=== PATIENT | male | born 1995 | race Caucasian/White ===

== ENCOUNTER 2018-06-17 23:40 | Emergency (ER) | payer BC ==
[2018-06-18] MEDS ORDERED: SODIUM CHLORIDE 0.9% 500 ML 500 ML IV STA (00:16)
--- NOTE | 2018-06-18 00:30 | XR ---
EXAMINATION TYPE: XR chest 2V DATE OF EXAM: 06/18/2018 COMPARISON: NONE HISTORY: Chest pain TECHNIQUE: Frontal and lateral views of the chest are obtained. FINDINGS: Heart and mediastinum are normal. Lungs are clear. Diaphragm is normal. There is no eviden ce of pleural effusion. Bony thorax is intact. There are chest leads. IMPRESSION: Normal chest
[2018-06-18 01:06] LABS: Basophils % (A) 0 %; Eosinophils # (A) 0.2 k/uL (0-0.7); Eosinophils % (A) 3 %; HCT 44.8 % (39.0-53.0); HGB 14.7 gm/dL (13.0-17.5); Lymphocytes # (A) 1.9 k/uL (1.0-4.8); Lymphocytes % (A) 31 %; MCH 28.3 pg (25.0-35.0); MCHC 32.7 g/dL (31.0-37.0); MCV 86.4 fL (80.0-100.0); Mean Platelet Volume 6.8; Monocytes # (A) 0.3 k/uL (0-1.0); Monocytes % (A) 5 %; Neutrophils # (A) 3.7 k/uL (1.3-7.7); Neutrophils % (A) 60 %; Platelet Count 203 k/uL (150-450); RBC 5.19 m/uL (4.30-5.90); RDW 12.7 % (11.5-15.5); WBC 6.2 k/uL (3.8-10.6)
[2018-06-18 01:15] LABS: INR 1.1 (<1.2); Partial Thromboplastin Time 26.7 sec (22.0-30.0); Prothrombin Time 11.3 sec (9.0-12.0)
[2018-06-18 01:17] LABS: ALT 36 U/L (21-72); AST 24 U/L (17-59); Albumin 4.1 g/dL (3.5-5.0); Alkaline Phosphatase 65 U/L (38-126); Amylase 45 U/L (30-110); Anion Gap 8 mmol/L; Blood Urea Nitrogen 15 mg/dL (9-20); Calcium 9.3 mg/dL (8.4-10.2); Carbon Dioxide 28 mmol/L (22-30); Chloride 106 mmol/L (98-107); Glucose 97 mg/dL (74-99); Lipase 69 U/L (23-300); Magnesium 2.2 mg/dL (1.6-2.3); Potassium 4.2 mmol/L (3.5-5.1); Sodium 142 mmol/L (137-145); Total Bilirubin 0.5 mg/dL (0.2-1.3); Total Protein 6.6 g/dL (6.3-8.2)
[2018-06-18 01:26] LABS: Creatine Kinase 97 U/L (55-170)
[2018-06-18] MEDS ORDERED: KETOROLAC 30 MG/ML 1 ML VIAL IVP STA (01:31)
--- NOTE | 2018-06-18 01:33 | ED ---
Chest Pain HPI - General Chief Complaint: Chest Pain Stated Complaint: Chest Pain Time Seen by Provider: 06/17/18 23:50 Source: family, RN notes reviewed, old records reviewed Mode of arrival: ambulatory Limitations: no limitations - History of Present Illness Initial Comments: Patient is a 23-year-old male, presents emergency department today with chief complaint chest pain intermittently for the past 2 days. He reports he had some episodes today while he was at work. He denies any nausea or vomiting. He reports some associated shortness of breath. He has no history of lung disease. He occasionally smokes marijuana. No cigarettes. He reports that over the past few days is also been having some generalized abdominal pain. He was told that he is constipated by medics breath. He's been taking MiraLAX. He did have bowel movement. Urination normal. He denies any nausea or vomiting. - Related Data Previous Rx's Medication Instructions Recorded Ibuprofen 400 mg PO TID #20 tablet 06/18/18 methylPREDNISolone Dose Pack 4 mg PO DIRECTED #21 package 06/18/18 [Medrol Dose Pack] Allergies Allergy/AdvReac Type Severity Reaction Status Date / Time Penicillins Allergy Unknown Verified 05/28/18 00:20 Childhood Sulfa (Sulfonamide Allergy Unknown Verified 05/28/18 00:20 Antibiotics) Childhood Review of Systems ROS Statement: Those systems with pertinent positive or pertinent negative responses have been documented in the HPI. ROS Other: All systems not noted in ROS Statement are negative. EKG Findings - EKG Comments: EKG Findings:: EKG performed at 2357 shows normal sinus rhythm with sinus arrhythmia. Normal EKG noted. Patient's ventricular rate of 73 bpm. TX interval is 178 ms. QRS duration is 104 ms. QT QTc is 366/43 ms. Past Medical History Past Medical History: No Reported History History of Any Multi-Drug Resistant Organisms: None Reported Past Surgical History: No Surgical Hx Reported Past Psychological History: No Psychological Hx Reported Smoking Status: Never smoker Past Alcohol Use History: Occasional Past Drug Use History: Marijuana General Exam - General Exam Comments Initial Comments: 23-year-old male. Somewhat anxious appearing. Patient appears in no acute distress. Limitations: no limitations General appearance: alert, in no apparent distress Head exam: Present: atraumatic, normocephalic, normal inspection Eye exam: Present: normal appearance, PERRL, EOMI. Absent: scleral icterus, conjunctival injection, periorbital swelling ENT exam: Present: normal exam, mucous membranes moist Neck exam: Present: normal inspection Respiratory exam: Present: normal lung sounds bilaterally. Absent: respiratory distress, wheezes, rales, rhonchi, stridor Cardiovascular Exam: Present: regular rate, normal rhythm, normal heart sounds. Absent: systolic murmur, diastolic murmur, rubs, gallop, clicks GI/Abdominal exam: Present: soft, normal bowel sounds. Absent: distended, tenderness, guarding, rebound, rigid Extremities exam: Present: normal inspection, full ROM, normal capillary refill. Absent: tenderness, pedal edema, joint swelling, calf tenderness Back exam: Present: normal inspection Neurological exam: Present: alert Psychiatric exam: Present: normal affect, normal mood Skin exam: Present: warm, dry, intact, normal color. Absent: rash Course Vital Signs 06/17/18 06/17/18 06/18/18 23:42 23:46 00:46 Temperature 98.1 F Pulse Rate 64 68 73 Respiratory 16 20 20 Rate Blood Pressure 122/80 132/84 121/80 O2 Sat by Pulse 100 99 99 Oximetry 06/18/18 01:44 Temperature Pulse Rate 67 Respiratory 20 Rate Blood Pressure 112/83 O2 Sat by Pulse 99 Oximetry Chest Pain MDM - MDM 23-year-old male presents to brace her arm today with chief complaint of chest pain or belly for the past 2 days. He reports it was worse work today. He complains of left sided nature. Radiating. Patient EKG was reviewed and negative for any acute process. Lab work including troponin were reviewed and negative. Liver enzymes are normal. Chest x-ray was reviewed and normal. Discussed at this time patient's symptoms could likely be related to costochondritis. He can follow-up with primary care physician. Cardiac etiology based on the oblique that time patient's symptoms are occurring is ruled out due to negative troponin and normal EKG. Disposition Clinical Impression: Costochondritis Disposition: HOME SELF-CARE Condition: Good Instructions: Costochondritis (ED) Additional Instructions: Patient advised to follow-up with primary care provider. Return to emergency department if any alarming signs or symptoms occur. Prescriptions: Ibuprofen 400 mg PO TID #20 tablet methylPREDNISolone Dose Pack [Medrol Dose Pack] 4 mg PO DIRECTED #21 package Is patient prescribed a controlled substance at d/c from ED?: No Referrals: None,Stated [Primary Care Provider] - 1-2 days Twila Lynn MD [STAFF PHYSICIAN] - 1-2 days Barber Caicedo MD [STAFF PHYSICIAN] - 1-2 days Time of Disposition: 02:19
[2018-06-18 01:36] LABS: Creatine Kinase MB 0.9 ng/mL (0.0-2.4)
[2018-06-18 01:39] LABS: Troponin I <0.012 ng/mL (0.000-0.034)
[2018-06-18 02:45] VITALS: BP 121/81; PULSE 66; RESP 18; TEMP 98.2
== END 2018-06-18 02:35 | disposition home or self-care (01) ==
LOC: EC 23:40
DX: M94.0 Chondrocostal junction syndrome [Tietze] (principal); R06.02 Shortness of breath; Z88.0 Allergy status to penicillin; Z88.2 Allergy status to sulfonamides; Z53.8 Procedure and treatment not carried out for other reasons
CPT/HCPCS: 36415; 71046; 80053; 82150; 82550; 82553; 83690; 83735; 84484; 85025; 85610; 85730; 93005; 96360; 99285

== ENCOUNTER 2018-08-06 08:28 | Day surgery (SDC) | payer BC ==
[2018-08-05 09:07] VITALS: BMI 21.8
[~2018-08-06 08:28] MED LIST: LACTATED RINGERS 1,000 ML IV SCH
[2018-08-06 08:54] VITALS: TEMP 97.4
[2018-08-06] MEDS ORDERED: PROPOFOL 10 MG/ML 20 ML VIAL IV ONE (09:49)
--- NOTE | 2018-08-06 09:54 | P.GSHP ---
History of Present Illness H&P Date: 08/06/18 Chief Complaint: Rectal bleeding This a 23-year-old male who presents today for colonoscopy. He's had issues with rectal bleeding. Patient describes a small amount of blood on his stool when he has a bowel movement. Past Medical History Past Medical History: No Reported History Additional Past Medical History / Comment(s): CHANGE IN BOWEL HABITS. OCCASSIONAL BLOOD AND MUCUS IN STOOL History of Any Multi-Drug Resistant Organisms: None Reported Past Surgical History: No Surgical Hx Reported Past Anesthesia/Blood Transfusion Reactions: No Reported Reaction Smoking Status: Never smoker - Past Family History Mother Family Medical History: No Reported History Medications and Allergies Home Medications Medication Instructions Recorded Confirmed Type No Known Home Medications 08/05/18 08/06/18 History Allergies Allergy/AdvReac Type Severity Reaction Status Date / Time Penicillins Allergy Unknown Verified 08/06/18 08:50 Childhood Sulfa (Sulfonamide Allergy Unknown Verified 08/06/18 08:50 Antibiotics) Childhood Surgical - Exam Vital Signs Temp Pulse Resp BP Pulse Ox 97.4 F L 75 16 122/66 100 08/06/18 08:51 08/06/18 08:51 08/06/18 08:51 08/06/18 08:51 08/06/18 08:51 - General well developed, well nourished, no distress - Eyes PERRL - ENT normal pinna - Neck no masses - Respiratory normal expansion - Cardiovascular Rhythm: regular - Abdomen Abdomen: soft, non tender Assessment and Plan Assessment: Rectal bleeding. We'll perform colonoscopy.
--- NOTE | 2018-08-06 10:08 | P.OP ---
Date of Procedure: 08/06/18 Preoperative Diagnosis: Rectal bleeding Postoperative Diagnosis: Minimal internal hemorrhoids Procedure(s) Performed: Colonoscopy Anesthesia: MAC Surgeon: Srinivasa Stevenson Pathology: none sent Condition: stable Disposition: PACU Description of Procedure: The patient's placed on the endoscopy table in the lateral position. He received IV sedation. Digital rectal exam was performed which revealed minimal internal hemorrhoids. The flexible colonoscope was then placed patient anus and passed throughout the entire colon. The ileocecal valve was visualized. Cecum, ascending and transverse colon appeared normal. The descending and sigmoid colon appeared normal. Scope was then brought back the rectum this was normal. Scope was withdrawn through the anus and there is minimal internal hemorrhoids. There is no sign of any active GI bleed. Minimal internal hemorrhoids. It was presumed that the patient's previous rectal bleeding is due to internal hemorrhoids however no bleeding was seen on the colonoscopy..
[2018-08-06 10:14] VITALS: RESP 18
[2018-08-06 10:28] VITALS: BP 110/65; PULSE 79
== END 2018-08-06 10:58 | disposition home or self-care (01) ==
LOC: ORWHC2ENDO 08:28
PROVIDERS: ATTEND Surgery
DX: K62.5 Hemorrhage of anus and rectum (principal); K64.8 Other hemorrhoids; Z88.0 Allergy status to penicillin; Z88.2 Allergy status to sulfonamides
CPT/HCPCS: 45378; J2704

== ENCOUNTER 2019-01-14 18:23 | Emergency (ER) | payer BC, OTHER ==
--- NOTE | 2019-01-14 20:25 | XR ---
EXAMINATION TYPE: XR hand complete RT DATE OF EXAM: 01/14/2019 COMPARISON: NONE HISTORY: Injury and pain TECHNIQUE: 3 views FINDINGS: Metacarpals appear intact. I see no fracture nor dislocation. There are no erosions. Joint spaces are normal. IMPRESSION: Negative right hand exam.
--- NOTE | 2019-01-14 20:43 | ED ---
Upper Extremity HPI - General Chief Complaint: Extremity Injury, Upper Stated Complaint: [facility]-Hand Injury Time Seen by Provider: 01/14/19 19:27 Source: patient, RN notes reviewed, old records reviewed Mode of arrival: ambulatory Limitations: no limitations - History of Present Illness Initial Comments: PAtient is a 23 year old male with right hand injury at work. Complains of smashing right 5th, fourth fingers on steel plate at work. Patient reports ROM, but with pain. Denies any other complaints. - Related Data Previous Rx's Medication Instructions Recorded Ibuprofen 600 mg PO TID #20 tablet 01/14/19 Allergies Allergy/AdvReac Type Severity Reaction Status Date / Time Penicillins Allergy Unknown Verified 01/14/19 19:02 Childhood Sulfa (Sulfonamide Allergy Unknown Verified 01/14/19 19:02 Antibiotics) Childhood Review of Systems ROS Statement: Those systems with pertinent positive or pertinent negative responses have been documented in the HPI. ROS Other: All systems not noted in ROS Statement are negative. Past Medical History Past Medical History: No Reported History Additional Past Medical History / Comment(s): CHANGE IN BOWEL HABITS. OCCASSIONAL BLOOD AND MUCUS IN STOOL History of Any Multi-Drug Resistant Organisms: None Reported Past Surgical History: No Surgical Hx Reported Past Anesthesia/Blood Transfusion Reactions: No Reported Reaction Past Psychological History: No Psychological Hx Reported Smoking Status: Never smoker Past Alcohol Use History: None Reported Past Drug Use History: Marijuana - Past Family History Mother Family Medical History: No Reported History General Exam - General Exam Comments Initial Comments: 23 year old male, no distress. Limitations: no limitations General appearance: alert, in no apparent distress Head exam: Present: atraumatic, normocephalic, normal inspection Eye exam: Present: normal appearance, PERRL, EOMI. Absent: scleral icterus, conjunctival injection, periorbital swelling ENT exam: Present: normal exam, mucous membranes moist Neck exam: Present: normal inspection. Absent: tenderness, meningismus, lymphadenopathy Respiratory exam: Present: normal lung sounds bilaterally. Absent: respiratory distress, wheezes, rales, rhonchi, stridor Extremities exam: Present: normal inspection, full ROM, normal capillary refill. Absent: tenderness, pedal edema, joint swelling, calf tenderness Right Forearm Wrist exam: Present: normal inspection, full ROM Hand Wrist exam: Present: normal inspection, full ROM, tenderness (over fifth digit and metacarpals. No deformity. Normal cap refill and sensation to light touch. ) Neuro motor exam: Present: wrist extension intact, thumb opposition intact, thumb IP flexion intact, thumb adduction intact, fingers 2-5 abduction intact Neurosensory exam: Present: 2-point discrimination Course Vital Signs 01/14/19 01/14/19 19:02 21:00 Temperature 98.2 F 98.1 F Pulse Rate 77 78 Respiratory 18 20 Rate Blood Pressure 111/72 110/68 O2 Sat by Pulse 99 99 Oximetry Medical Decision Making - Medical Decision Making 23 year old male with right hand pain after hitting it on metal plate while at work. Tenderness over 5th metacarapal. Patient has full ROM, no tendon disruption, and is neurovascularly intact. At this time patient given WILL wrap. Discussed contusion and strain of hand. Discussed return parametesr. - Radiology Data Radiology results: report reviewed Negative right hand exam. Disposition Clinical Impression: Sprain of right hand, Contusion, hand Disposition: HOME SELF-CARE Condition: Good Instructions (If sedation given, give patient instructions): Hand Sprain (ED) Additional Instructions: Patient take Motrin Tylenol for pain. Follow-up with [facility] of the dictation persist after the next few days. Return to the emergency department if any alarming signs or symptoms occur. Prescriptions: Ibuprofen 600 mg PO TID #20 tablet Is patient prescribed a controlled substance at d/c from ED?: No Referrals: Nessa Quinteros DO [Primary Care Provider] - 1-2 days Time of Disposition: 20:38
[2019-01-14 22:07] VITALS: BP 110/68; PULSE 78; RESP 20; TEMP 98.1
== END 2019-01-14 21:00 | disposition home or self-care (01) ==
LOC: EC 18:23
DX: S63.91XA Sprain of unspecified part of right wrist and hand, initial encounter (principal); Z88.0 Allergy status to penicillin; Z88.2 Allergy status to sulfonamides; W22.8XXA Striking against or struck by other objects, initial encounter; Y92.69 Other specified industrial and construction area as the place of occurrence of the external cause; Y99.0 Civilian activity done for income or pay
CPT/HCPCS: 99284

== ENCOUNTER 2019-10-26 20:25 | Emergency (ER) | payer OTHER ==
[2019-10-26 20:32] VITALS: RESP 20
--- NOTE | 2019-10-26 20:50 | ED ---
Extremity Problem HPI - General Chief complaint: Extremity Problem,Nontraumatic Stated complaint: L Leg Pain Time Seen by Provider: 10/26/19 20:34 Source: patient, RN notes reviewed Mode of arrival: ambulatory Limitations: no limitations - History of Present Illness Initial comments: This a 24-year-old male presents emergency Department chief complaint of left calf pain. Patient states that this is starting last 24 hours. Patient states initially only hurt when he ambulated but states now it hurts when something rubs against his skin. Patient states is on the lateral portion of his calf. Denies any injury. She denies any rash. Patient denies any back pain no history of back problems. Denies any bowel, bladder incontinence or retention denies any paresthesias or saddle anesthesias. Patient states that he was wearing loose pants because it was bothering initially rubbed against area. He denies any redness - Related Data Home Medications Medication Instructions Recorded Confirmed No Known Home Medications 10/26/19 10/26/19 Allergies Allergy/AdvReac Type Severity Reaction Status Date / Time Penicillins Allergy Unknown Verified 10/26/19 21:45 Childhood Sulfa (Sulfonamide Allergy Unknown Verified 10/26/19 21:45 Antibiotics) Childhood Review of Systems ROS Statement: Those systems with pertinent positive or pertinent negative responses have been documented in the HPI. ROS Other: All systems not noted in ROS Statement are negative. Past Medical History Past Medical History: No Reported History Additional Past Medical History / Comment(s): CHANGE IN BOWEL HABITS. OCCASSIONAL BLOOD AND MUCUS IN STOOL History of Any Multi-Drug Resistant Organisms: None Reported Past Surgical History: No Surgical Hx Reported Past Anesthesia/Blood Transfusion Reactions: No Reported Reaction Past Psychological History: No Psychological Hx Reported Smoking Status: Never smoker Past Alcohol Use History: Occasional Past Drug Use History: Marijuana - Past Family History Mother Family Medical History: No Reported History General Exam Limitations: no limitations General appearance: alert, in no apparent distress Head exam: Present: atraumatic, normocephalic, normal inspection Neck exam: Present: normal inspection. Absent: tenderness, meningismus, lymphadenopathy Respiratory exam: Present: normal lung sounds bilaterally. Absent: respiratory distress, wheezes, rales, rhonchi, stridor Cardiovascular Exam: Present: regular rate, normal rhythm, normal heart sounds. Absent: systolic murmur, diastolic murmur, rubs, gallop, clicks GI/Abdominal exam: Present: soft, normal bowel sounds. Absent: distended, tenderness, guarding, rebound, rigid Extremities exam: Present: other (There is tenderness to lateral portion of the calf localized to one area just inferior to the knee there is no rash or erythema no discoloration equal color equal warmth pedal pulses equal bilatera lly full range of motion) Back exam: Present: normal inspection, full ROM. Absent: tenderness Neurological exam: Present: alert, oriented X3, CN II-XII intact, reflexes normal. Absent: motor sensory deficit Skin exam: Present: warm, dry, intact, normal color. Absent: rash Course Vital Signs 10/26/19 20:30 Temperature 99.6 F Pulse Rate 84 Respiratory 20 Rate Blood Pressure 100/63 O2 Sat by Pulse 99 Oximetry Medical Decision Making - Medical Decision Making Patient ultrasound was negative for acute DVT. Patient has hypersensitivity and tenderness to lateral portion of his leg this is concerning for probable nerve pain from irritation. I did want patient about early shingles. Patient will return for any worsening symptoms. Patient will follow-up for possible EMG and return parameters were discussed. Disposition Clinical Impression: Injury of nerve of left lower leg, Leg pain, left Disposition: HOME SELF-CARE Condition: Stable Instructions (If sedation given, give patient instructions): Leg Pain (ED) Additional Instructions: Please return to the Emergency Department if symptoms worsen or any other concerns. Is patient prescribed a controlled substance at d/c from ED?: No Referrals: Nessa Quinteros DO [Primary Care Provider] - 1-2 days Gabriel Martinez DO [Doctor of Osteopathic Medicine] - 1-2 days Time of Disposition: 22:01
--- NOTE | 2019-10-26 21:50 | US ---
EXAMINATION TYPE: US venous doppler duplex LE LT DATE OF EXAM: 10/26/2019 9:42 PM COMPARISON: NONE CLINICAL HISTORY: pain. Pain left leg x 1 day. Patient not taking blood thinners. No hx of DVT. SIDE PERFORMED: Left TECHNIQUE: The lower extremity deep venous system is examined utilizing real time linear array sonog vahid with graded compression, doppler sonography and color-flow sonography. VESSELS IMAGED: External Iliac Vein (EIV) Common Femoral Vein Deep Femoral Vein Greater Saphenous Vein * Femoral Vein Popliteal Vein Small Saphenous Vein * Proximal Calf Veins (* superficial vessels) Left Leg: Patient was in severe pain in certain areas while performing ultrasound exam. No evidence o f DVT in veins imaged at this time. Veins imaged do appear to compress and to show color flow. IMPRESSION: Normal exam. No evidence of deep vein thrombosis.
[2019-10-26 22:08] VITALS: BP 123/56; PULSE 81; TEMP 98.3
== END 2019-10-26 22:03 | disposition home or self-care (01) ==
LOC: EC 20:25
DX: S84.92XA Injury of unspecified nerve at lower leg level, left leg, initial encounter (principal); Z88.2 Allergy status to sulfonamides; Z88.0 Allergy status to penicillin; X58.XXXA Exposure to other specified factors, initial encounter
CPT/HCPCS: 99283

== ENCOUNTER 2019-12-23 19:06 | Emergency (ER) | payer SELFPAY ==
[2019-12-23 19:22] VITALS: TEMP 98.2
--- NOTE | 2019-12-23 20:20 | ED ---
Psych HPI - General Chief Complaint: Psychiatric Symptoms Stated Complaint: Mental health Time Seen by Provider: 12/23/19 19:31 Source: patient Mode of arrival: ambulatory - History of Present Illness Initial Comments: Patient is a 24-year-old male presenting to the emergency department for a psychiatric evaluation. Patient states he has not slept in approximately 2 days and feels like he might have a breakdown. He also thinks "he is super Smart or may have cancer." He admits to suicidal thoughts for the last 1-2 weeks, he did have a plan about a week ago but states he does not have a plan today. He denies any homicidal thoughts. He states he occasionally drinks alcohol, occasionally smokes marijuana, no other drug use. He did not drink today. He takes no medications, he has no pertinent past medical history. He denies any pain or recent fevers. He has no further complaints at this time. Upon arrival to the ER his vital signs are stable. - Related Data Home Medications Medication Instructions Recorded Confirmed No Known Home Medications 10/26/19 10/26/19 Allergies Allergy/AdvReac Type Severity Reaction Status Date / Time Penicillins Allergy Unknown Verified 10/26/19 21:45 Childhood Sulfa (Sulfonamide Allergy Unknown Verified 10/26/19 21:45 Antibiotics) Childhood Review of Systems ROS Statement: Those systems with pertinent positive or pertinent negative responses have been documented in the HPI. ROS Other: All systems not noted in ROS Statement are negative. Past Medical History Past Medical History: No Reported History Additional Past Medical History / Comment(s): CHANGE IN BOWEL HABITS. OCCASSIONAL BLOOD AND MUCUS IN STOOL History of Any Multi-Drug Resistant Organisms: None Reported Past Surgical History: No Surgical Hx Reported Past Anesthesia/Blood Transfusion Reactions: No Reported Reaction Past Psychological History: No Psychological Hx Reported Smoking Status: Never smoker Past Alcohol Use History: Occasional Past Drug Use History: Marijuana - Past Family History Mother Family Medical History: No Reported History General Exam - General Exam Comments Initial Comments: GENERAL: Well-appearing, well-nourished and in no acute distress. HEAD: Atraumatic, normocephalic. EYES: Pupils equal round and reactive to light, extraocular movements intact, sclera anicteric, conjunctiva are normal. ENT: TMs normal, nares patent, oropharynx clear without exudates. Moist mucous membranes. NECK: Normal range of motion, supple without lymphadenopathy or JVD. LUNGS: Breath sounds clear to auscultation bilaterally and equal. No wheezes rales or rhonchi. HEART: Regular rate and rhythm without murmurs, rubs or gallops. ABDOMEN: Soft, nontender, normoactive bowel sounds. No guarding, no rebound. No masses appreciated. : Deferred EXTREMITIES: Normal range of motion, no pitting or edema. No clubbing or cyanosis. NEUROLOGICAL: Cranial nerves II through XII grossly intact. Normal speech, normal gait. PSYCH: Patient appears anxious SKIN: Warm, Dry, normal turgor, no rashes or lesions noted. Limitations: no limitations Course Vital Signs 12/23/19 12/23/19 19:19 22:59 Temperature 98.2 F 98.2 F Pulse Rate 80 81 Respiratory 19 16 Rate Blood Pressure 119/81 130/78 O2 Sat by Pulse 99 98 Oximetry Medical Decision Making - Medical Decision Making Patient is a 24-year-old male here for psychiatric evaluation. He admits to suicidal thoughts for the past 1-2 weeks with a plan 1 week ago but no specific plan today. He denies homicidal thoughts. His exam is unremarkable. Patient was evaluated by [facility]. They did recommend discharge and he will follow up with [facility]. They do have a safety contract. He is in agreement with this plan of care. Patient is stable for discharge. Disposition Clinical Impression: Acute anxiety Disposition: HOME SELF-CARE Condition: Stable Instructions (If sedation given, give patient instructions): Anxiety (ED) Additional Instructions: Please return to the Emergency Department if symptoms worsen or any other concerns. Follow up with [facility] as discussed. Is patient prescribed a controlled substance at d/c from ED?: No Referrals: Nessa Quinteros DO [Primary Care Provider] - 1-2 days
[2019-12-23 22:59] VITALS: BP 130/78; PULSE 81; RESP 16
== END 2019-12-23 22:58 | disposition home or self-care (01) ==
LOC: EC 19:06
DX: F41.9 Anxiety disorder, unspecified (principal); Z86.59 Personal history of other mental and behavioral disorders; Z88.0 Allergy status to penicillin; Z88.2 Allergy status to sulfonamides
CPT/HCPCS: 82075; 99284